=== PATIENT | male | born 1955 | race American Indian/Alaskan Native ===

== ENCOUNTER 2019-09-24 08:35 | Outpatient (CLI) | payer MEDICARE ==
--- NOTE | 2019-09-24 09:37 | Cat Scan Report ---
CT ABDOMEN AND PELVIS WITHOUT CONTRAST HISTORY: C61 MALIGNANT NEOPLASM OF PROSTATE COMPARISON: None. TECHNIQUE: Axial CT images were obtained through the abdomen and pelvis without IV contrast. Sagittal and coronal reformatted images. All CT scans at this location are performed using CT dose reduction for ALARA by means of automated exposure control. FINDINGS: CT ABDOMEN: Lung Bases: Clear. Liver: No significant abnormality. Biliary: No significant abnormality. Spleen: No significant abnormality. Unenlarged. Pancreas: No significant abnormality. Adrenals: No significant abnormality. Kidneys: There are a few scattered punctate renal calyceal stones in both kidneys. No cystic disease, obvious mass or hydronephrosis. The ureters are normal course and caliber. Lymphatics: No lymphadenopathy. Vasculature: Mild scattered aortic calcifications. No aneurysm. Bowel/Peritoneum: There are several diverticula throughout the length of the colon. There appear to b e 2 duodenal diverticula as well. No evidence for bowel obstruction or focal inflammation. The append ix is not identified, correlate with surgical history. CT PELVIS: : No significant abnormality. The prostate gland appears normal size measuring 4.5 cm in diameter. Osseous Structures: Mild thoracolumbar spondylosis. No fracture or suspicious bony lesion is detected . Additional Findings: None IMPRESSION: No evidence for metastatic disease in the abdomen or pelvis. Punctate bilateral renal stones, nonobstructing. Diverticulosis as described. Signer Name: Vance Christina Jr, MD Signed: 09/24/2019 9:33 AM Workstation Name: [id number]
--- NOTE | 2019-09-24 13:45 | Nuclear Medicine Report ---
NUCLEAR MEDICINE BONE SCAN, WHOLE BODY INDICATION: C61 MALIGNANT NEOPLASM OF PROSTATE. TECHNIQUE: 26 mCi of Tc-99m MDP were injected IV. Whole body images were obtained. COMPARISON: CT abdomen pelvis without contrast performed the same day. FINDINGS: Skeletal Structures: Fairly symmetric, likely degenerative uptake is present involving the shoulders , sternoclavicular joints, wrists and lumbar spine.. Skeletal Lesions: There is focal intense uptake of the radiotracer in the mid upper thoracic spine at approximate T6 level which is suspicious for metastatic disease or fracture. I favor metastatic dise ase. Please note this area was not included on CT performed the same day.. No additional areas of power picious uptake are identified on bone scan. Soft Tissues: Normal. Kidneys: Normal, symmetric activity. Additional Findings: None. IMPRESSION: Suspicious uptake at approximate T6 level concerning for metastatic disease. Consider correlation wi CT or radiographs.. Signer Name: Vance Christina Jr, MD Signed: 09/24/2019 1:41 PM Workstation Name: [id number]
== END 2019-09-24 08:36 | disposition home or self-care (01) ==
LOC: NM 08:35
PROVIDERS: ATTEND Urology
DX: N20.0 Calculus of kidney (principal); K57.30 Diverticulosis of large intestine without perforation or abscess without bleeding; M47.814 Spondylosis without myelopathy or radiculopathy, thoracic region; C61 Malignant neoplasm of prostate
CPT/HCPCS: 74176; 78306; A9503